=== PATIENT | male | born 1960 | race Caucasian/White ===

== ENCOUNTER 2018-11-09 02:32 | Emergency (ER) | payer MEDICAID ==
[2018-11-09] MEDS ORDERED: DIAZEPAM 5 MG PREPACK#4 BTL TAKEHOME ONE (03:45)
--- NOTE | 2018-11-09 03:45 | EDPHY ---
H & P Time Seen by Provider: 11/09/18 02:55 HPI/ROS: CHIEF COMPLAINT: Pain in the right lumbar area going down to the right buttock HISTORY OF PRESENT ILLNESS: This is a 58-year-old gentleman who [place] He describes being up in [place] for the better part of the last 35 years. This past fall as his 18-year-old son reach maturity he decided moved back to here and now lives in [place]. 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 He will continue to do so down here. He returns to work next on Sunday, 2 days from now. He has remote history of a LS surgery back in 1983. He has done well since having sporadic back troubles. He was seen by his family physician approximately 6 weeks ago for bilateral severe upper neck discomfort. He does not really recall much in the way of blood work but does believe that they were is a empirical trial of prednisone high dose with taper for suspected lupus. He states that he is now 5 weeks into the taper and will be taking half a tablet for the next 8 days, then finish. Last week he had an illness where he has felt feverish and chilled with diffuse entire spine aches. There is really no cough associated with that but he did have a headache. Although symptoms have since resolved with the development of the low back pain as discussed below. We are in the midst of the tail end of influenza season Beginning last week around 7-10 days ago he started having right paraspinal lumbar discomfort. This persisted and localized. It does go down to the buttock cheek and at times it feels like it goes into his foot. If anything, he also is better with activity and more mobile if he keeps moving. He has been finding over last 2 nights profound difficulty sleeping where he can't sleep any more than 4 hr. His home initiated medication prescription has include the following: Ibuprofen 2-400 mg brief 4 times a day Occasional Anaprox Continue his prednisone No Tylenol Bowel or bladder incontinence: None Prior spine instrumentation: 1983 Prior spine imaging: Evidently had cervical spine MRIs the this past October Pt queried and denies: prior hx of substance abuse, family history of substance abuse, or current or prior psychiatric history. [place] Prescription Drug Monitoring Program checked: He received a course of Valium this past September REVIEW OF SYSTEMS: Constitutional: No fever, no chills. Gastrointestinal: abdominal pain. Genitourinary: No hematuria or frequency. Skin: No rashes. Neurological: No numbness or tingling A 10 system review of systems was performed and is negative except for the noted findings in the HPI. Smoking Status: Heavy smoker Physical Exam: General: Well-developed well-nourished. Nontoxic. Afebrile. Vital signs are stable. Smells of tobacco Back: No spasm though some right-sided paralumbar tenderness. No rashes. Range of motion limited SLR: Negative Great Toe Extension: Strong bilaterally Patellar Reflex: Symmetrical Ankle Reflex: Symmetrical Sensation: Preserved, symmetrical normal. Constitutional: Initial Vital Signs Temperature (C) 36.6 C 11/09/18 02:53 Heart Rate 107 H 11/09/18 02:53 Respiratory Rate 18 11/09/18 02:53 Blood Pressure 155/146 H 11/09/18 02:53 O2 Sat (%) 93 11/09/18 02:53 O2 Delivery Mode Room Air Allergies/Adverse Reactions: No Known Allergies Allergy (Unverified 11/09/18 02:55) Home Medications: Medication Instructions Recorded Acetaminophen [Tylenol Arthritis] 1,300 mg PO TID #30 tablet.er 11/09/18 Diazepam [Valium 5 MG (*)] 5 mg PO HS PRN 6 Days #6 tab 11/09/18 Ibuprofen [Motrin (*)] 600 mg PO TID #21 tab 11/09/18 Prednisone 11/09/18 Medical Decision Making ED Course/Re-evaluation: Upon initial exam we discussed pain management to include Tylenol extended- release as well as a moderate dose of ibuprofen given the fact that he is on prednisone taper that he is finishing up. I suspect were dealing with a little bit of a rebound process of him having to come off is prednisone with respect to aggravation of a chronic mild to moderate low back problem. I suspect he will do well. Differential Diagnosis: Differential diagnosis includes but not limited to: Fracture, Sprain, Strain, Acute Degenerative Disc, Disc Herniation, Radiculopathy, Sacroiliac dysfunction, Epidural Abscess. - Data Points Medications Given: Discontinued Medications Diazepam (Valium 5 Mg Prepack#4) 1 btl TAKEHOME EDNOW ONE Stop: 11/09/18 03:46 Last Admin: 11/09/18 03:57 Dose: 1 btl Departure - Departure Disposition: Home, Routine, Self-Care Clinical Impression: Low back pain Qualifiers: Chronicity: acute Back pain laterality: right Sciatica presence: without sciatica Qualified Code(s): M54.5 - Low back pain Condition: Good Instructions: Acute Low Back Pain (ED), Lower Back Exercises (ED) Additional Instructions: Tylenol and Advil works well together in combination: 1300 mg Extended Release Tylenol and 600 mg Advil every 8 hours, as needed for the pain. Continue the Prednisone taper. Valium as a muscle relaxer - do not operate machinery or drive for 24 hr after a dose Referrals: Patient,NotPresent [Primary Care Provider] - As per Instructions Prescriptions: Acetaminophen [Tylenol Arthritis] 1,300 mg PO TID #30 tablet.er Diazepam [Valium 5 MG (*)] 5 mg PO HS PRN 6 Days #6 tab PRN Reason: Pain and sleep Ibuprofen [Motrin (*)] 600 mg PO TID #21 tab
[2018-11-09 03:59] VITALS: BP 125/73
== END 2018-11-09 04:02 | disposition home or self-care (01) ==
LOC: CED 02:32
DX: M54.41 Lumbago with sciatica, right side (principal); M54.2 Cervicalgia; F17.200 Nicotine dependence, unspecified, uncomplicated
CPT/HCPCS: 99283-ER

== ENCOUNTER 2018-11-09 07:32 | Emergency (ER) | payer MEDICAID ==
--- NOTE | 2018-11-09 08:14 | EDPHY ---
H & P Stated Complaint: lower back pain Time Seen by Provider: 11/09/18 07:41 HPI/ROS: Chief Complaint: Back pain HPI: 58-year-old male with a history of chronic back pain presenting for evaluation. Patient was seen here earlier this morning with back pain. He was given a prescription for Valium as a muscle relaxer. Patient states he has been having intermittent back pain for years since he had lower spine surgery. He has had spasm and worsening pain on the right-hand side for the last week ever since he had a flu-like illness. He has not had any fevers or chills. No cough. Did have some body aches. Does have resolved several days ago. He is having persistent pain in her right lower back. No numbness or weakness. He is ambulating without any difficulty. Does have a recent diagnosis of possible lupus and is currently on a prednisone taper. This resulted after an admission to [facility] in September. No difficulty urinating or increasing urination. Pain is worse at night when he is trying to get some sleep. States he is only able to get about 3-4 hours at a time. Has been intermittently taking some ibuprofen, no see him in a fan. Patient went home this morning and took a Valium. Suffer couple hours and woke up in his pain had returned. ROS: 10 systems were reviewed and were negative except those elements noted in the HPI. PMH: Possible SLE Social History: Positive smoking, no alcohol, no recreational drug use Family History: non-contributory Physical Exam: Gen: Awake, Alert, No Distress HEENT: Nose: no rhinorrhea Eyes: PERRLA, EOMI Mouth: Moist mucosa Neck: Supple, no JVD Chest: nontender, lungs clear to auscultation Heart: S1, S2 normal, no murmur Abd: Soft, non-tender, no guarding Back: no CVA tenderness, no midline tenderness Ext: no edema, non-tender Skin: no rash Neuro: CN II-XII intact, Sensation grossly intact, Strength 5/5 in bilateral upper and lower extremities. Normal dorsiflexion and plantar flexion bilaterally. Normal deep tendon reflexes. Toes are downgoing. Normal straight leg raise bilaterally. - Personal History Current Tetanus/Diphtheria Vaccine: Yes Current Tetanus Diphtheria and Acellular Pertussis (TDAP): Yes - Medical/Surgical History Hx Asthma: No Hx Chronic Respiratory Disease: No Hx Diabetes: No Hx Cardiac Disease: No Hx Renal Disease: No Hx Cirrhosis: No Hx Alcoholism: No Hx HIV/AIDS: No Hx Splenectomy or Spleen Trauma: No Other PMH: Low back Sx. - Social History Smoking Status: Heavy smoker Constitutional: Initial Vital Signs Temperature (C) 36.6 C 11/09/18 07:38 Heart Rate 106 H 11/09/18 07:38 Respiratory Rate 16 11/09/18 07:38 Blood Pressure 112/69 11/09/18 07:38 O2 Sat (%) 95 11/09/18 07:38 O2 Delivery Mode Room Air Allergies/Adverse Reactions: No Known Allergies Allergy (Unverified 11/09/18 02:55) Home Medications: Medication Instructions Recorded Acetaminophen [Tylenol Arthritis] 1,300 mg PO TID #30 tablet.er 11/09/18 Diazepam [Valium 5 MG (*)] 5 mg PO HS PRN 6 Days #6 tab 11/09/18 Ibuprofen [Motrin (*)] 600 mg PO TID #21 tab 11/09/18 Prednisone 11/09/18 Medical Decision Making Procedures: Procedure: Trigger-point injection, Indication: Skin was prepped with chlorhexidine swab. A total of 10 mL of 1% lidocaine was infiltrated into right lumbar paraspinal muscles. The patient experienced relief following the procedure. There are no complications. It was performed by myself. ED Course/Re-evaluation: No evidence of hematuria or infection on urine dip. I have performed a trigger- point injection. Patient had significant relief after that. I have also placed a lidocaine patch. Will discharge with my usual back pain instructions, discontinue Valium and all muscle relaxers. Follow up with primary care in spine surgeons. - Data Points Medications Given: Discontinued Medications Miscellaneous Medication (Icy Hot Lidocaine/Menthol 4%/1% Patch) 1 patch TD EDNOW ONE Stop: 11/09/18 08:27 Last Admin: 11/09/18 08:30 Dose: 1 patch Point of Care Test Results: Urine Dip Collection Date 11/09/18 Collection Time 08:20 Specific [place] (1.002-1.030) 1.015 PH (5.0-7.5) 6.0 Leukocytes (Negative) 1+ Nitrites (Negative) Negative Protein (Negative) Trace Glucose (Negative) Negative Ketones (Negative) 1+ Urobilnogen (0.2-1.0 EU) 0.2 Bilirubin (Negative) Negative Blood (Negative) Trace Departure - Departure Disposition: Home, Routine, Self-Care Clinical Impression: Low back pain Condition: Good Instructions: Back Pain (ED), Lower Back Exercises (ED) Additional Instructions: Take ibuprofen, 600 mg, 3 times a day. You may also take acetaminophen, 1000 mg every 6 hours. You may replace a Lidoderm patch every 24 hr, these are available over-the- counter. Apply ice for 15 minutes of every hour while awake. Make sure to remain active. Did do not lay in bed or sit in a chair for long periods. Avoid heavy lifting or bending at work until cleared by your physician. Please see the attached back exercise instructions. Follow up with your primary care physician in 2-3 days for further evaluation. Referrals: NONE *PRIMARY CARE P,. [Primary Care Provider] - As per Instructions
[2018-11-09] MEDS ORDERED: LIDOCAINE 4%/MENTHOL 1% PATCH TD ONE (08:26)
[2018-11-09 09:08] VITALS: BP 138/86
[2018-11-09] MEDS ORDERED: PATCH REMOVAL 1 EA PATCH TD SCH (21:00)
== END 2018-11-09 08:50 | disposition home or self-care (01) ==
LOC: CED 07:32
PROC: 3E023BZ Introduction of Anesthetic Agent into Muscle, Percutaneous Approach (ICD-10-PCS; principal; 2018-11-09)
DX: M54.5 Low back pain (principal); F17.200 Nicotine dependence, unspecified, uncomplicated
CPT/HCPCS: 99283-ER

== ENCOUNTER 2018-11-11 23:40 | Emergency (ER) | payer MEDICAID ==
[2018-11-12 00:03] VITALS: BP 152/69
[2018-11-12] MEDS ORDERED: LIDOCAINE 4%/MENTHOL 1% PATCH TD ONE ×3 (00:04→00:05)
[2018-11-12] MEDS ORDERED: KETOROLAC 30 MG/1 ML SDV IM ONE (00:10)
[2018-11-12] MEDS ORDERED: KETOROLAC 15 MG/1 ML SDV ONE (00:11)
[2018-11-12] MEDS ORDERED: CYCLOBENZAPRINE 10MG PREPACK#3 BTL TAKEHOME ONE (00:23)
--- NOTE | 2018-11-12 00:25 | EDPHY ---
H & P Time Seen by Provider: 11/11/18 23:47 HPI/ROS: CHIEF COMPLAINT: Back pain History by patient HISTORY OF PRESENT ILLNESS: 58-year-old man with history of chronic back pain and recent evaluation for neck pain 1 month ago who says he is getting worked up for lupus by his primary care physician presents complaining of ongoing low back pain which he describes mostly in his right buttock and radiating down both legs as an achy but not electric shooting pain. He says sometimes his feet feel numb. He says the whole thing began with a headache and has been progressing down his body and a month ago involved his neck and then later his hands and now has low back and buttocks. He has heels long chronic history of back pain for which he has had surgery in the past. He denies any fever. He denies any weight loss. He denies any trouble controlling his bowel or bladder. He denies any focal weakness but has some bilateral foot numbness. He had an MRI 1 month ago which showed some narrowing and when he followed up with the neurosurgeon neurosurgeon said there was nothing to do about it at this point. At the beginning of October was given a short course of steroids for his neck pain. He did take 1 of those steroid pills today. Patient was seen in the ER for the same pain twice 2 days ago. He was given a prescription for Valium 1st visit which he says he did not fill. He was given a trigger point injection and lidocaine patches the 2nd visit and he felt the trigger point injection helped. His son put some [id number] lidocaine patches on his back today but they have had minimal relief. He has been taking ibuprofen and Tylenol. Last dose of ibuprofen was several hours ago. He says he drank some wine to help the pain but that did not help. Tonight the pain is more in his buttock than in his low back for when he was seen here 2 days ago. REVIEW OF SYSTEMS: As in HPI, and all other systems reviewed and are negative Smoking Status: Heavy smoker Physical Exam: General Appearance: Alert, nontoxic-appearing, odor of alcohol. Head: Normocephalic, atraumatic Eyes: Pupils equal and round, no pallor or injection. ENT, Mouth: Mucous membranes moist. Neck: No bony tenderness, full range of motion Gastrointestinal: Abdomen is soft and nontender, no masses, bowel sounds normal. Neurological: Awake, alert and oriented x 3, no pronator drift, normal gait, no pronator drift, DTRs unable to obtain bilaterally, no pain with straight leg raise, strength is 5/5 and equal bilaterally in lower extremities, normal gait Back: No bony tenderness, no obvious muscle or soft tissue tenderness, mild tenderness over his right buttock Skin: Warm and dry, no rashes. Musculoskeletal: Neck is supple, FROM, nontender. Extremities: symmetrical, full range of motion. Psychiatric: Patient has normal affect, there is no agitation. Constitutional: Initial Vital Signs Temperature (C) 36.7 C 11/11/18 23:53 Heart Rate 121 H 11/11/18 23:53 Respiratory Rate 18 11/11/18 23:53 Blood Pressure 152/69 H 11/11/18 23:53 O2 Sat (%) 92 11/11/18 23:53 O2 Delivery Mode Room Air Allergies/Adverse Reactions: No Known Allergies Allergy (Unverified 11/09/18 02:55) Home Medications: Medication Instructions Recorded Acetaminophen [Tylenol Arthritis] 1,300 mg PO TID #30 tablet.er 11/09/18 Diazepam [Valium 5 MG (*)] 5 mg PO HS PRN 6 Days #6 tab 11/09/18 Ibuprofen [Motrin (*)] 600 mg PO TID #21 tab 11/09/18 Prednisone 11/09/18 Cyclobenzaprine [Flexeril 10 MG 10 mg PO TID PRN #15 tab 11/12/18 (*)] Lidocaine 5% [Lidoderm 5% Patch] 1 ea TD DAILY #30 patch 11/12/18 MDM/Departure - MDM Medications Given: Discontinued Medications Cyclobenzaprine HCl (Flexeril 10 Mg Prepack#3) 1 btl TAKEHOME EDNOW ONE Stop: 11/12/18 00:24 Last Admin: 11/12/18 00:30 Dose: 1 btl Ketorolac Tromethamine (Toradol) 15 mg IM EDNOW ONE Stop: 11/12/18 00:11 Last Admin: 11/12/18 00:14 Dose: 15 mg Miscellaneous Medication (Icy Hot Lidocaine/Menthol 4%/1% Patch) 1 patch TD EDNOW ONE Stop: 11/12/18 00:05 Last Admin: 11/12/18 00:07 Dose: 1 patch Miscellaneous Medication (Icy Hot Lidocaine/Menthol 4%/1% Patch) 1 patch TD EDNOW ONE Stop: 11/12/18 00:06 Last Admin: 11/12/18 00:07 Dose: 1 patch ED Course/Re-evaluation: 58-year-old man with a history of chronic back pain and recent visits for the same presents tonight with ongoing pain. The patient arrived he was belligerent uncooperative with staff requiring the police to be called. Eventually the patient calmed down. I reviewed the patient's prior visits in [facility], including MRI. There are no red flags for serious causes of back pain and no evidence of neurological impairment. The patient did take a dose of steroid today but this is not enough to make her immunosuppressed. He finished a full course of steroids a month ago. Patient was given a dose of IM Toradol and discharged with a prepack for Flexeril and a prescription for Flexeril. We did discuss how he should not take this medicine if he is also drinking alcohol. Patient has follow up with the physician in [place] and has been seen by a neurosurgeon I am recommending he follow up with the neurosurgeon again if his pain continues to get worse. - Depart Disposition: Home, Routine, Self-Care Clinical Impression: Back pain Qualifiers: Back pain location: low back pain Chronicity: chronic Back pain laterality: bilateral Sciatica presence: without sciatica Qualified Code(s): M54.5 - Low back pain Condition: Good Instructions: Cyclobenzaprine (By mouth), Chronic Back Pain (DC) Additional Instructions: You were seen by Dr. Ruma Mujica today. You may try the cyclobenzaprine for your muscle spasm and back pain. Do not mix this medicine with alcohol. Continue to take ibuprofen. Please follow up with your doctor, Dr. Yao in [place] and your neurosurgeon Dr. Zimmer if your symptoms persist. Return for any worsening or new concerns including but not limited to fever, inability to control your bowel or bladder, weakness in her lower legs or other advancing symptoms. Prescriptions: Cyclobenzaprine [Flexeril 10 MG (*)] 10 mg PO TID PRN #15 tab PRN Reason: Spasms Lidocaine 5% [Lidoderm 5% Patch] 1 ea TD DAILY #30 patch Referrals: Patient,NotPresent [Primary Care Provider] - As per Instructions
[2018-11-12] MEDS ORDERED: PATCH REMOVAL 1 EA PATCH TD SCH (21:00)
== END 2018-11-12 00:35 | disposition home or self-care (01) ==
LOC: CED 23:40
DX: M54.5 Low back pain (principal)
CPT/HCPCS: 99284-ER; J1885